=== PATIENT | female | born 1980 | race Asian ===

== ENCOUNTER 2017-11-08 15:10 | Emergency (ER) | payer OTHER ==
[~2017-11-08] VITALS: Ht 160 cm; Wt 70.3 kg
[2017-11-08 15:15] VITALS: BP 122/78
[2017-11-08] MEDS ORDERED: CYCL-331 PO (15:43)
[2017-11-08] MEDS ORDERED: NAPR-683 PO (15:43)
[2017-11-08] MEDS ORDERED: METH4TAB2 PO (15:43)
--- NOTE | 2017-11-08 15:50 | PHYS DOC ---
Past History Past Medical History: Other Past Surgical History: Smoking: Non-smoker Alcohol Use: None Drug Use: None Adult General Chief Complaint Chief Complaint: UPPER EXTREMITY INJURY HPI HPI 37-year-old right-handed female patient complaining of right shoulder pain for 1 month that getting worse for the last 3 days. Patient states she is not able to sleep after 1 AM because of severe pain with radiation to her fingers as a constant and sharp pain. Patient states she started a job at [employer] about 4 months ago as a physical job. Patient rated her pain mild at this time and doesn't want pain medication. Review of Systems Review of Systems Constitutional: Denies fever or chills [] Eyes: Denies change in visual acuity, redness, or eye pain [] HENT: Denies nasal congestion or sore throat [] Respiratory: Denies cough or shortness of breath [] Cardiovascular: No additional information not addressed in HPI [] GI: Denies abdominal pain, nausea, vomiting, bloody stools or diarrhea [] : Denies dysuria or hematuria [] Musculoskeletal: Denies back pain, reports shoulder pain Integument: Denies rash or skin lesions [] Neurologic: Denies headache, focal weakness or sensory changes [] Endocrine: Denies polyuria or polydipsia [] All other systems were reviewed and found to be within normal limits, except as documented in this note. Allergies Allergies Allergies Coded Allergies Type Severity Reaction Last Updated Verified No Known Drug Allergies 11/08/17 No Physical Exam Physical Exam Constitutional: Well developed, well nourished, no acute distress, non-toxic appearance. [] HENT: Normocephalic, atraumatic, bilateral external ears normal, oropharynx moist, no oral exudates, nose normal. [] Eyes: PERRLA, EOMI, conjunctiva normal, no discharge. [] Neck: Normal range of motion, no tenderness, supple, no stridor. [] Cardiovascular:Heart rate regular rhythm, no murmur [] Lungs & Thorax: Bilateral breath sounds clear to auscultation [] Back: No tenderness, no CVA tenderness. [] Extremities: No tenderness, no cyanosis, no clubbing, ROM intact, no edema. [] Neurologic: Alert and oriented X 3, normal motor function, normal sensory function, no focal deficits noted. [] Psychologic: Affect normal, judgement normal, mood normal. [] Current Patient Data Vital Signs Vital Signs Date Time Temp Pulse Resp B/P (MAP) Pulse Ox O2 Delivery O2 Flow Rate FiO2 11/08/17 15:15 97.5 75 16 99 Room Air EKG EKG [] Radiology/Procedures Radiology/Procedures [] Course & Med Decision Making Course & Med Decision Making Evaluation of patient in ER showed 77-year-old female patient with complaining of right shoulder pain for one month that getting 70. Patient had unremarkable physical exam. Patient instructed to follow with her primary care physician or work comp for more evaluation of her shoulder including MRI. Plan to give prescription of Flexeril, Medrol Dosepak and Naprosyn and instruction to apply ice on her shoulder. Dragon Disclaimer [employer] Disclaimer This electronic medical record was generated, in whole or in part, using a voice recognition dictation system. Departure Departure: Impression: Primary Impression: Right shoulder strain Disposition: HOME, SELF-CARE (At 1544) Condition: STABLE Referrals: ROSCOE LEYVA DO (PCP) Patient Instructions: Muscle Strain Additional Instructions: Follow-up with your primary care physician in 2-5 days for more shoulder evaluation including MRI Apply ice on your shoulder Scripts Naproxen (NAPROSYN) 500 Mg Tablet 500 MG PO BID Y for PAIN for 10 Days, #20 TAB Prov: BRI MULLIGAN MD 11/08/17 Cyclobenzaprine Hcl (CYCLOBENZAPRINE HCL) 10 Mg Tablet 1 TAB PO QHS for 10 Days, #10 TAB Prov: BRI MULLIGAN MD 11/08/17 Methylprednisolone (MEDROL) 4 Mg Tab.ds.pk 1 PKG PO UD, #1 PKG Prov: BRI MULLIGAN MD 11/08/17 BRI MULLIGAN MD Nov 08, 2017 15:50
== END 2017-11-08 15:50 | disposition home or self-care (01) ==
LOC: ER 15:10
DX: S46.911A Strain of unspecified muscle, fascia and tendon at shoulder and upper arm level, right arm, initial encounter (principal); X58.XXXA Exposure to other specified factors, initial encounter; Y93.89 Activity, other specified; Y99.8 Other external cause status; Y92.89 Other specified places as the place of occurrence of the external cause
CPT/HCPCS: 99283